=== PATIENT | male | born 1960 | race Asian ===

== ENCOUNTER 2017-04-18 07:59 | Day surgery (SDC) | payer OTHER ==
[2017-04-18 08:21] LABS: PLATELET COUNT 151 K/uL (142-355)
[2017-04-18 08:31] LABS: POTASSIUM 3.7 mmol/L (3.6-5.2); SODIUM 136 mmol/L (136-145)
== END 2017-04-18 12:15 | disposition home or self-care (01) ==
LOC: OR 07:59
PROVIDERS: Student in an Organized Health Care Education/Training Program
PROC: 0DBM8ZZ Excision of Descending Colon, Via Natural or Artificial Opening Endoscopic (ICD-10-PCS; principal; 2017-04-18)
PROC: 0DBN8ZZ Excision of Sigmoid Colon, Via Natural or Artificial Opening Endoscopic (ICD-10-PCS; 2017-04-18)
PROC: 0DBP8ZZ Excision of Rectum, Via Natural or Artificial Opening Endoscopic (ICD-10-PCS; 2017-04-18)
DX: K63.5 Polyp of colon (principal); D12.8 Benign neoplasm of rectum; K64.8 Other hemorrhoids; Z12.11 Encounter for screening for malignant neoplasm of colon
CPT/HCPCS: 80053; 85027; J2001; J2250; J2704; J3010; J3490

== ENCOUNTER 2017-09-05 08:33 | Day surgery (SDC) | payer OTHER ==
[2017-09-05 09:16] LABS: PLATELET COUNT 153 K/uL (142-355)
[2017-09-05 09:22] LABS: POTASSIUM 3.6 mmol/L (3.6-5.2)
== END 2017-09-05 17:15 | disposition home or self-care (01) ==
LOC: OR 08:33
PROVIDERS: Student in an Organized Health Care Education/Training Program
PROC: 06BY0ZC Excision of Hemorrhoidal Plexus, Open Approach (ICD-10-PCS; principal; 2017-09-05)
DX: K64.2 Third degree hemorrhoids (principal); K64.4 Residual hemorrhoidal skin tags
CPT/HCPCS: 80053; 85027; J0132; J0330; J1170; J1885; J2001; J2250; J2405; J2704; J3010; J3490; S0028